=== PATIENT | female | born 1975 | race African-American/Black ===

== ENCOUNTER 2025-03-30 08:23 | Day surgery (SDC) | payer OTHER ==
[~2025-03-30] VITALS: Ht 157.5 cm; Wt 59.0 kg
[~2025-03-30 08:23] MED LIST: IBLOOD GLUCOSE TEST STRIP 1 EA TEST VI PRN; LACTATED RINGER'S 1,000 ML IV SCH; LIDOCAINE HCL 1% 5 ML SDV INJ ONE; LIDOCAINE HCL 2% 5 ML SDV ONE; MIDAZOLAM HCL 5 MG/5 ML VIAL IV PRN; fentaNYL citrate 100 MCG/2 ML VIAL IV PRN
[2025-03-30 08:38] VITALS: BP 156/83
--- NOTE | 2025-03-30 10:12 | NUR ---
03/30/25 Cornel2 Shreya Arroyo 1007-PATIENT ARRIVED TO PACU ON 2L NC RR EVEN. PATIENT NONAROUSABLE LAYING LEFT LATERAL ABDOMEN SOFT. IVF INFUSING. SR HR 60'S.
[2025-03-30 11:06] VITALS: BP 181/94
--- NOTE | 2025-03-30 11:11 | NUR ---
1100- PT ARRIVED IN DS VIA STRETCHER. PT VITALS, PAIN, AND N/V NOTED. PT REPORTS GAS PAINS AND USED RESTROOM IN PACU BEFORE COMING BACK TO DS. MONITORING N/V AFTER GIVING MEDS PER EMAR. PT ENCOURAGED TO PASS GAS. PLAN DISCUSSED WITH PT, PT IS UNDERSTNADING. ABD SOFT NON TENDER. WARM BLANKET PROVIDED. NO OTHER NEEDS AT THIS TIME. CALL LIGHT IN REACH.
[2025-03-30 12:26] VITALS: BP 169/86
--- NOTE | 2025-03-30 12:31 | NUR ---
1200- PT REPORTS FEELING "MUCH BETTER" 1204- HOURLY ROUNDING COMPLETED AND VITALS NOTED. DC EDUCATION PROVIDED AND PT VERBALIZED UNDERSTANDING. IV REMOVED WITHOUT ISSUE. 1213- PT TRANSFERRED TO WHEELCHAIR WITHOUT ISSUE OR ASSISTANCE. PT WHEELED OUT TO FRONT AND TRANSFERRED TO CAR WITHOUT ISSUE.
== END 2025-03-30 12:13 | disposition home or self-care (01) ==
LOC: DS 08:23
PROVIDERS: ATTEND Surgery
PROC: 0DJD8ZZ Inspection of Lower Intestinal Tract, Via Natural or Artificial Opening Endoscopic (ICD-10-PCS; principal; 2025-03-30 10:10)
DX: Z12.11 Encounter for screening for malignant neoplasm of colon (principal); K63.89 Other specified diseases of intestine; Z88.8 Allergy status to other drugs, medicaments and biological substances; Z87.891 Personal history of nicotine dependence
CPT/HCPCS: 00812; J2003; J2405; J2704; J7121